=== PATIENT | male | born 1995 | race Hispanic/Latino ===

== ENCOUNTER 2017-08-13 00:41 | Emergency (ER) | payer SELFPAY ==
[2017-08-13] MEDS ORDERED: TYLENOL ONE ×2 (04:32)
[2017-08-13] MEDS ORDERED: TYLENOL PO ONE (04:34)
--- NOTE | 2017-08-13 05:14 | Emergency Department Report ---
ED ENT HPI - General Chief complaint: Sore Throat Stated complaint: SORE THROAT Time Seen by Provider: 08/13/17 04:43 Source: patient Mode of arrival: Ambulatory Limitations: No Limitations - History of Present Illness Initial comments: 21-year-old male past medical history smoker presents with complaint of sore throat for 4 days. Patient speaking in full sentences denies any pus or blood drainage from mouth. States he has seen white plaques in the back of his throat. States he has had slight body aches. Patient speaking in full sentences and this or drooling noted on exam. Patient is awake alert and oriented 3 nontoxic appearing. States he is able to swallow liquids but solids are somewhat painful. MD complaint: sore throat Onset/Timin -: days(s) Location: throat Severity: moderate Quality: aching Consistency: constant Improves with: none Worsens with: none Associated Symptoms: sore throat - Related Data Previous Rx's Medication Instructions Recorded Last Taken Type Ibuprofen [Motrin] 800 mg PO Q8HR PRN #15 tablet 07/23/15 Unknown Rx Promethazine /Codeine 5 ml PO Q6H PRN #90 ml 07/23/15 Unknown Rx [Phenergan/Codeine 6.25-10 mg/5Ml] guaiFENesin 400 mg PO Q4H #15 tablet 07/23/15 Unknown Rx Acetaminophen/Codeine [Tylenol #3] 1 tab PO QHS PRN #15 tab 08/09/15 Unknown Rx Ibuprofen [Motrin] 800 mg PO Q8HR PRN #45 tablet 08/09/15 Unknown Rx Benzocaine/Menth/Cetylpyrd 1 each PO Q4H PRN #1 packet 08/13/17 Unknown Rx [Cepacol X Strength] Ibuprofen [Motrin] 600 mg PO Q8H PRN #20 tablet 08/13/17 Unknown Rx Allergies Allergy/AdvReac Type Severity Reaction Status Date / Time No Known Allergies Allergy Verified 07/23/15 15:35 ED Dental HPI - General Chief complaint: Sore Throat Stated complaint: SORE THROAT Time Seen by Provider: 08/13/17 04:43 Source: patient Mode of arrival: Ambulatory Limitations: No Limitations - Related Data Previous Rx's Medication Instructions Recorded Last Taken Type Ibuprofen [Motrin] 800 mg PO Q8HR PRN #15 tablet 07/23/15 Unknown Rx Promethazine /Codeine 5 ml PO Q6H PRN #90 ml 07/23/15 Unknown Rx [Phenergan/Codeine 6.25-10 mg/5Ml] guaiFENesin 400 mg PO Q4H #15 tablet 07/23/15 Unknown Rx Acetaminophen/Codeine [Tylenol #3] 1 tab PO QHS PRN #15 tab 08/09/15 Unknown Rx Ibuprofen [Motrin] 800 mg PO Q8HR PRN #45 tablet 08/09/15 Unknown Rx Benzocaine/Menth/Cetylpyrd 1 each PO Q4H PRN #1 packet 08/13/17 Unknown Rx [Cepacol X Strength] Ibuprofen [Motrin] 600 mg PO Q8H PRN #20 tablet 08/13/17 Unknown Rx Allergies Allergy/AdvReac Type Severity Reaction Status Date / Time No Known Allergies Allergy Verified 07/23/15 15:35 ED Review of Systems ROS: Stated complaint: SORE THROAT Other details as noted in HPI Constitutional: denies: chills, fever Eyes: denies: eye pain, eye discharge, vision change ENT: throat pain. denies: ear pain Respiratory: denies: cough, shortness of breath, wheezing Cardiovascular: denies: chest pain, palpitations Endocrine: no symptoms reported Gastrointestinal: denies: abdominal pain, nausea, diarrhea Genitourinary: denies: urgency, dysuria Musculoskeletal: denies: back pain, joint swelling, arthralgia Skin: denies: rash, lesions Neurological: denies: headache, weakness, paresthesias Psychiatric: denies: anxiety, depression Hematological/Lymphatic: denies: easy bleeding, easy bruising ED Past Medical Hx - Past Medical History Previous Medical History?: No - Surgical History Hx Appendectomy: Yes - Social History Smoking Status: Current Some Day Smoker Substance Use Type: Alcohol - Medications Home Medications: Home Medications Medication Instructions Recorded Confirmed Last Taken Type Ibuprofen [Motrin] 800 mg PO Q8HR PRN #15 tablet 07/23/15 Unknown Rx Promethazine /Codeine 5 ml PO Q6H PRN #90 ml 07/23/15 Unknown Rx [Phenergan/Codeine 6.25-10 mg/5Ml] guaiFENesin 400 mg PO Q4H #15 tablet 07/23/15 Unknown Rx Acetaminophen/Codeine [Tylenol #3] 1 tab PO QHS PRN #15 tab 08/09/15 Unknown Rx Ibuprofen [Motrin] 800 mg PO Q8HR PRN #45 tablet 08/09/15 Unknown Rx Benzocaine/Menth/Cetylpyrd 1 each PO Q4H PRN #1 packet 08/13/17 Unknown Rx [Cepacol X Strength] Ibuprofen [Motrin] 600 mg PO Q8H PRN #20 tablet 08/13/17 Unknown Rx ED Physical Exam - General Limitations: No Limitations General appearance: alert, in no apparent distress - Head Head exam: Present: atraumatic, normocephalic - Eye Eye exam: Present: normal appearance, PERRL, EOMI - ENT ENT exam: Present: mucous membranes moist - Expanded ENT Exam Expanded Throat exam: Positive: tonsillar erythema, tonsillar exudate (tonsillar erythema on left side. No [employer] uvula is midline) - Neck Neck exam: Present: normal inspection, full ROM, lymphadenopathy (some anterior tender cervical adenopathy or some left and right) - Respiratory Respiratory exam: Present: normal lung sounds bilaterally. Absent: respiratory distress - Cardiovascular Cardiovascular Exam: Present: regular rate, normal rhythm. Absent: systolic murmur, diastolic murmur, rubs, gallop - GI/Abdominal GI/Abdominal exam: Present: soft, normal bowel sounds - Rectal Rectal exam: Present: deferred - Extremities Exam Extremities exam: Present: normal inspection - Back Exam Back exam: Present: normal inspection - Neurological Exam Neurological exam: Present: alert, oriented X3 - Psychiatric Psychiatric exam: Present: normal affect, normal mood - Skin Skin exam: Present: warm, dry, intact, normal color. Absent: rash ED Course Vital Signs 08/13/17 08/13/17 02:31 04:43 Temperature 97.9 F Pulse Rate 85 Respiratory 18 Rate Blood Pressure 135/84 O2 Sat by Pulse 99 Oximetry ED Medical Decision Making - Medical Decision Making A/P: Tonsillitis 1-empiric treatment with penicillin, throat culture sent 2-Motrin when necessary, Cepacol throat lozenges when necessary 3-patient tolerating by mouth fluids before discharge 4-vital signs stable for discharge Critical care attestation.: If time is entered above; I have spent that time in minutes in the direct care of this critically ill patient, excluding procedure time. ED Disposition Clinical Impression: Sore throat, Tonsillitis Disposition: DC-01 TO HOME OR SELFCARE Is pt being admited?: No Does the pt Need Aspirin: No Condition: Stable Instructions: Tonsillitis (ED) Prescriptions: Benzocaine/Menth/Cetylpyrd [Cepacol X Strength] 1 each PO Q4H PRN #1 packet PRN Reason: Sore Throat Ibuprofen [Motrin] 600 mg PO Q8H PRN #20 tablet PRN Reason: Pain Referrals: [facility] [Provider Group] - 3-5 Days [facility] - 3-5 Days Forms: Accompanied Note, Work/School Release Form(ED) Time of Disposition: 05:25
[2017-08-13] MEDS ORDERED: BICILLIN L-A IM ONE (05:21)
[2017-08-13] MEDS ORDERED: DECADRON IM ONE (05:21)
[2017-08-13 05:38] VITALS: BP 134/87
== END 2017-08-13 05:54 | disposition home or self-care (01) ==
LOC: ED 00:41
DX: J03.90 Acute tonsillitis, unspecified (principal); F17.200 Nicotine dependence, unspecified, uncomplicated; Z90.49 Acquired absence of other specified parts of digestive tract
CPT/HCPCS: 87116; 87430; 96372; 99282; J0561; J1100

== ENCOUNTER 2018-09-13 23:43 | Emergency (ER) | payer OTHER ==
[2018-09-14] MEDS ORDERED: BENADRYL IV STA (01:46)
[2018-09-14] MEDS ORDERED: TORADOL IV STA (01:46)
[2018-09-14] MEDS ORDERED: REGLAN IV STA (01:46)
[2018-09-14] MEDS ORDERED: NACL 0.9% 1000 ML 1,000 ML IV ONE (01:46)
--- NOTE | 2018-09-14 02:00 | Emergency Department Report ---
ED Headache HPI - General Chief Complaint: Skin Rash Stated Complaint: MIGRAINE/RASH Time Seen by Provider: 09/14/18 01:44 Source: patient Exam Limitations: no limitations - History of Present Illness Timing/Duration: other (3 days) Quality: mild, throbbing Head Injury Location: global Recent Head Trauma: no recent headache/trauma Modifying Factors: improves with: cold therapy Associated Symptoms: denies symptoms, nasal congestion. denies: fatigue, facial pain, nausea/vomiting, sinus infection, vision changes, weakness Allergies/Adverse Reactions: Allergies No Known Allergies Allergy (Verified 07/23/15 15:35) Home Medications: Ambulatory Orders Ibuprofen [Motrin] 800 mg PO Q8HR PRN #15 tablet 07/23/15 Promethazine /Codeine [Phenergan/Codeine 6.25-10 mg/5Ml] 5 ml PO Q6H PRN #90 ml 07/23/15 guaiFENesin 400 mg PO Q4H #15 tablet 07/23/15 Acetaminophen/Codeine [Tylenol #3] 1 tab PO QHS PRN #15 tab 08/09/15 Ibuprofen [Motrin] 800 mg PO Q8HR PRN #45 tablet 08/09/15 Benzocaine/Mentho [Cepacol X Strength] 1 each PO Q4H PRN #1 packet 08/13/17 Ibuprofen [Motrin] 600 mg PO Q8H PRN #20 tablet 08/13/17 Butalb/Acetaminophen/Caffeine [Fioricet 50-300-40 mg CAP] 1 cap PO Q6HR PRN #20 cap 09/14/18 ED Review of Systems ROS: Stated complaint: MIGRAINE/RASH Other details as noted in HPI Constitutional: denies: chills, fever Eyes: denies: eye pain, eye discharge, vision change ENT: denies: ear pain, throat pain Respiratory: denies: cough, shortness of breath, wheezing Cardiovascular: denies: chest pain, palpitations Endocrine: no symptoms reported Gastrointestinal: denies: abdominal pain, nausea, diarrhea Genitourinary: denies: urgency, dysuria Musculoskeletal: denies: back pain, joint swelling, arthralgia Skin: denies: rash, lesions Neurological: denies: headache, weakness, paresthesias Psychiatric: denies: anxiety, depression Hematological/Lymphatic: denies: easy bleeding, easy bruising ED Past Medical Hx - Past Medical History Previous Medical History?: No - Surgical History Past Surgical History?: Yes Hx Appendectomy: Yes - Social History Smoking Status: Current Every Day Smoker Substance Use Type: None - Medications Home Medications: Home Medications Medication Instructions Recorded Confirmed Last Taken Type Ibuprofen [Motrin] 800 mg PO Q8HR PRN #15 tablet 07/23/15 Unknown Rx Promethazine /Codeine 5 ml PO Q6H PRN #90 ml 07/23/15 Unknown Rx [Phenergan/Codeine 6.25-10 mg/5Ml] guaiFENesin 400 mg PO Q4H #15 tablet 07/23/15 Unknown Rx Acetaminophen/Codeine [Tylenol #3] 1 tab PO QHS PRN #15 tab 08/09/15 Unknown Rx Ibuprofen [Motrin] 800 mg PO Q8HR PRN #45 tablet 08/09/15 Unknown Rx Benzocaine/Mentho [Cepacol X 1 each PO Q4H PRN #1 packet 08/13/17 Unknown Rx Strength] Ibuprofen [Motrin] 600 mg PO Q8H PRN #20 tablet 08/13/17 Unknown Rx Butalb/Acetaminophen/Caffeine 1 cap PO Q6HR PRN #20 cap 09/14/18 Unknown Rx [Fioricet 50-300-40 mg CAP] ED Physical Exam - General Limitations: No Limitations General appearance: alert, in no apparent distress - Head Head exam: Present: atraumatic, normocephalic, normal inspection - Eye Eye exam: Present: normal appearance, PERRL, EOMI. Absent: nystagmus, other Pupils: Present: normal accommodation. Absent: irregular, miosis - ENT ENT exam: Present: normal exam, normal orophraynx, mucous membranes moist - Neck Neck exam: Present: normal inspection, full ROM. Absent: tenderness, lymphadenopathy - Respiratory Respiratory exam: Present: normal lung sounds bilaterally. Absent: respiratory distress, wheezes, rales, chest wall tenderness, accessory muscle use, prolonged expiratory - Cardiovascular Cardiovascular Exam: Present: regular rate, normal rhythm. Absent: systolic murmur, diastolic murmur, rubs, gallop - GI/Abdominal GI/Abdominal exam: Present: soft, normal bowel sounds. Absent: distended, tenderness, guarding, hyperactive bowel sounds, hypoactive bowel sounds, organomegaly, mass - Rectal Rectal exam: Present: deferred - Extremities Exam Extremities exam: Present: normal inspection, full ROM, normal capillary refill - Back Exam Back exam: Present: normal inspection, full ROM. Absent: CVA tenderness (R), CVA tenderness (L), muscle spasm - Neurological Exam Neurological exam: Present: alert, oriented X3 - Psychiatric Psychiatric exam: Present: normal affect, normal mood - Skin Skin exam: Present: warm, dry, intact, normal color. Absent: rash ED Course Vital Signs 09/13/18 23:58 Temperature 97.6 F Pulse Rate 58 L Respiratory 18 Rate Blood Pressure 137/78 O2 Sat by Pulse 98 Oximetry Critical care attestation.: If time is entered above; I have spent that time in minutes in the direct care of this critically ill patient, excluding procedure time. ED Disposition Clinical Impression: Cephalgia Disposition: DC-01 TO HOME OR SELFCARE Is pt being admited?: No Does the pt Need Aspirin: No Condition: Stable Instructions: Migraine Headache (ED) Referrals: ALEJA GONZÁLES MD [Primary Care Provider] - 3-5 Days
[2018-09-14 05:17] VITALS: BP 123/66
== END 2018-09-14 05:16 | disposition home or self-care (01) ==
LOC: ED 23:43
DX: R51 Headache (principal); F17.200 Nicotine dependence, unspecified, uncomplicated
CPT/HCPCS: 96374; 96375; 99282; J1200; J1885; J2765; J7030